=== PATIENT | female | born 1980 ===

== ENCOUNTER 2019-05-04 20:39 | Emergency (ER) | payer MEDICARE, OTHER ==
[2019-05-04 20:44] VITALS: RESP 18
[2019-05-04] MEDS ORDERED: PROPARACAINE 0.5% OPHTH DROPS 15 ML BTL LEFT EYE STA (20:58)
[2019-05-04] MEDS ORDERED: methylPREDNISolone SOD SUCC 1,000 MG in SODIUM CHLORIDE 0.9% 250 ML IVPB STA (22:06)
[2019-05-04 22:35] LABS: Basophils % (A) 0 %; Eosinophils # (A) 0.2 k/uL (0-0.7); Eosinophils % (A) 4 %; HCT 39.3 % (34.0-46.0); HGB 13.2 gm/dL (11.4-16.0); Lymphocytes # (A) 2.3 k/uL (1.0-4.8); Lymphocytes % (A) 40 %; MCH 30.2 pg (25.0-35.0); MCHC 33.5 g/dL (31.0-37.0); MCV 90.2 fL (80.0-100.0); Mean Platelet Volume 7.9; Monocytes # (A) 0.4 k/uL (0-1.0); Monocytes % (A) 8 %; Neutrophils # (A) 2.6 k/uL (1.3-7.7); Neutrophils % (A) 46 %; Platelet Count 228 k/uL (150-450); RBC 4.36 m/uL (3.80-5.40); WBC 5.7 k/uL (3.8-10.6)
[2019-05-04 22:45] LABS: African American GFR (CKD) >90 (>60 ml/min/1.73 sqM); Anion Gap 12 mmol/L; C Reactive Protein <5.0 mg/L (<10.0); Calcium 9.9 mg/dL (8.4-10.2); Carbon Dioxide 20 mmol/L (22-30); Chloride 108 mmol/L (98-107); Glucose 87 mg/dL (74-99); Sodium 140 mmol/L (137-145); Total Protein 7.7 g/dL (6.3-8.2)
[2019-05-04 22:47] LABS: ALT 14 U/L (9-52); AST 29 U/L (14-36); Blood Urea Nitrogen 12 mg/dL (7-17); Potassium 4.7 mmol/L (3.5-5.1)
[2019-05-04 22:48] LABS: Albumin 4.9 g/dL (3.5-5.0); Alkaline Phosphatase 56 U/L (38-126); Total Bilirubin 0.8 mg/dL (0.2-1.3)
[2019-05-04] MEDS ORDERED: hydrOXYzine HCL 25 MG TAB PO STA (22:57)
[2019-05-04 23:02] VITALS: TEMP 98
--- NOTE | 2019-05-04 23:40 | ED ---
Eye Problem HPI - General Chief complaint: Eye Problems Stated complaint: eye problems Time Seen by Provider: 05/04/19 20:50 Source: patient, family Mode of arrival: ambulatory Limitations: no limitations - History of Present Illness Initial comments: Patient is a 38-year-old female with history of optic neuritis is presenting to emergency Department with left eye pain. Patient was diagnosed with optic neuritis 5 years ago. Patient reports exacerbation of the optic neuritis a few times throughout the year. Patient reports pain or left-sided started earlier today and is exacerbated with extraocular movements. Patient reports these are typical symptoms of optic neuritis exacerbation. Patient reports typically she is treated with opthalamic analgesics and steroids. Patient reports going to the urgent care to obtain a medication which they referred her to the emergency department. Patient reports she was diagnosed with rheumatoid arthritis but not multiple sclerosis. - Related Data Home Medications Medication Instructions Recorded Confirmed No Known Home Medications 05/04/19 05/04/19 Allergies Allergy/AdvReac Type Severity Reaction Status Date / Time Benzodiazepines Allergy Confusion Verified 05/05/19 16:01 gabapentin Allergy Rash/Hives Verified 05/05/19 16:01 Review of Systems ROS Statement: Those systems with pertinent positive or pertinent negative responses have been documented in the HPI. ROS Other: All systems not noted in ROS Statement are negative. Past Medical History Additional Past Medical History / Comment(s): epilepsy, TBI, diplopia. History of Any Multi-Drug Resistant Organisms: None Reported Additional Past Surgical History / Comment(s): parathyroidectomy. Smoking Status: Never smoker Past Alcohol Use History: None Reported Past Drug Use History: None Reported General Exam Limitations: no limitations General appearance: alert, in no apparent distress Head exam: Present: atraumatic, normocephalic, normal inspection Eye exam: Present: PERRL (After proparacaine administration), EOMI, conjunctival injection (Left eye). Absent: normal appearance (Patient unable to fully open left eye due to pain.) Pupils: Present: normal accommodation (After proparacaine administration), other (Patchin her right eye from previous injury. Pain with extra ocular movements. ) ENT exam: Present: normal exam, normal oropharynx, mucous membranes moist, TM's normal bilaterally, normal external ear exam Neck exam: Present: normal inspection, full ROM Respiratory exam: Present: normal lung sounds bilaterally Cardiovascular Exam: Present: regular rate, normal rhythm, normal heart sounds Extremities exam: Present: normal inspection, full ROM Back exam: Present: normal inspection, full ROM Neurological exam: Present: alert, oriented X3 Psychiatric exam: Present: normal affect, normal mood Skin exam: Present: warm, intact, normal color Course Vital Signs 05/04/19 05/04/19 05/05/19 20:40 22:58 01:01 Temperature 98.8 F 98.0 F Pulse Rate 77 86 61 Respiratory 18 18 18 Rate Blood Pressure 119/72 132/94 112/73 O2 Sat by Pulse 99 98 98 Oximetry Medical Decision Making - Medical Decision Making Patient is a 38-year-old female presenting to emergency Department with left eye pain. Basic labs were unremarkable. ESR and CRP were also unremarkable. Patient was given thousand milligrams of methylprednisone. Proparacaine drops were applied to the left eye which gave the patient immediately treatment and allowed me to do a better physical examination of the eye. Patient will be discharged with a physical prescription to undergo to methylprednisone infusions tomorrow and the following day. Patient advised to follow-up with ophthalmology. Strict return parameters were thoroughly discussed the patient was understanding and agreeable. Case discussed with physician. - Lab Data Result diagrams: 05/04/19 22:20 05/04/19 22:20 Lab Results 05/04/19 05/04/19 05/04/19 Range/Units 22:20 22:20 23:50 WBC 5.7 (3.8-10.6) k/uL RBC 4.36 (3.80-5.40) m/uL Hgb 13.2 (11.4-16.0) gm/dL Hct 39.3 (34.0-46.0) % MCV 90.2 (80.0-100.0) fL MCH 30.2 (25.0-35.0) pg MCHC 33.5 (31.0-37.0) g/dL RDW 14.0 (11.5-15.5) % Plt Count 228 (150-450) k/uL Neutrophils % 46 % Lymphocytes % 40 % Monocytes % 8 % Eosinophils % 4 % Basophils % 0 % Neutrophils # 2.6 (1.3-7.7) k/uL Lymphocytes # 2.3 (1.0-4.8) k/uL Monocytes # 0.4 (0-1.0) k/uL Eosinophils # 0.2 (0-0.7) k/uL Basophils # 0.0 (0-0.2) k/uL ESR 6 (0-20) mm/hr Sodium 140 (137-145) mmol/L Potassium 4.7 (3.5-5.1) mmol/L Chloride 108 H (98-107) mmol/L Carbon Dioxide 20 L (22-30) mmol/L Anion Gap 12 mmol/L BUN 12 (7-17) mg/dL Creatinine 0.81 (0.52-1.04) mg/dL Est GFR (CKD-EPI)AfAm >90 (>60 ml/min/1.73 sqM) Est GFR (CKD-EPI)NonAf >90 (>60 ml/min/1.73 sqM) Glucose 87 (74-99) mg/dL Calcium 9.9 (8.4-10.2) mg/dL Total Bilirubin 0.8 (0.2-1.3) mg/dL AST 29 (14-36) U/L ALT 14 (9-52) U/L Alkaline Phosphatase 56 (38-126) U/L C-Reactive Protein <5.0 (<10.0) mg/L Total Protein 7.7 (6.3-8.2) g/dL Albumin 4.9 (3.5-5.0) g/dL Disposition Clinical Impression: Pain, eye, left Disposition: HOME SELF-CARE Condition: Stable Instructions (If sedation given, give patient instructions): Eye Lubricant (Into the eye), Eye Wash (Into the eye) Additional Instructions: Please follow up with ophthalmology. Please return for administration of the prescribed medication.. Please return to emergency department if symptoms worsen. Is patient prescribed a controlled substance at d/c from ED?: No Referrals: Nonstaff,Physician [Primary Care Provider] - 1-2 days Time of Disposition: 02:03
[2019-05-05 01:02] VITALS: BP 112/73; PULSE 61
== END 2019-05-05 02:37 | disposition home or self-care (01) ==
LOC: EC 20:39
DX: H57.12 Ocular pain, left eye (principal); Z88.8 Allergy status to other drugs, medicaments and biological substances
CPT/HCPCS: 36415; 80053; 85652; 85025; 86140; 99283; 96365; J2930